=== PATIENT | female | born 2000 | race Caucasian/White ===

== ENCOUNTER 2023-10-25 07:45 | Inpatient (IN) | payer OTHER ==
[2023-10-25] MEDS: ELECTROLYTE-148 SOLN 1,000 ML IV SCH (08:25)
[2023-10-25 09:00] VITALS: BMI 28.1
[2023-10-25 10:38] LABS: BASO % 0.2 % (0-2.0); EOS % 0.1 % (0-4.5); HEMATOCRIT 27.7 % (32.4-45.2); LYMPH % 12.2 % (8-40); MCH 24.6 pg (25.7-33.7); MCHC 32.6 g/dl (32.0-36.0); MEAN CELL VOLUME 75.3 fl (80-96); MEAN PLT VOLUME 7.1 fl (7.5-11.1); MONO % 4.8 % (3.8-10.2); NEUT % 82.7 % (42.8-82.8); PLATELET COUNT 267 10^3/uL (134-434); RBC 3.68 M/mm3 (3.60-5.2); RDW 16.9 % (11.6-15.6); WHITE BLOOD COUNT 10.6 K/mm3 (4.0-10.0)
[2023-10-25] MEDS ORDERED: OXYTOCIN 30 UNITS in 0.9% NS 30 UNIT/500 ML INFUS.BAG IVPB ONE (10:38)
[2023-10-25] MEDS: OXYTOCIN 30 UNITS in 0.9% NS 30 UNIT/500 ML INFUS.BAG IVPB SCH (10:45)
[2023-10-25 10:57] LABS: POTASSIUM 3.8 mmol/L (3.5-5.1)
[2023-10-25 10:58] LABS: CALCIUM 8.8 mg/dL (8.5-10.1)
[2023-10-25 11:02] LABS: CREATININE 0.6 mg/dL (0.55-1.3)
[2023-10-25 11:20] LABS: ACTIVATED PTT 26.8 SECONDS (25.2-36.5); INR 0.91 (0.83-1.09); PROTHROMBIN TIME (PATIENT) 10.5 SEC (9.7-13.0)
[2023-10-25 11:55] LABS: HIV INTERPRETATION NEGATIVE (NEGATIVE)
[2023-10-25 13:56] LABS: POC NITRAZINE POS
[2023-10-25] MEDS ORDERED: PROMETHAZINE HCL 25 MG/1 ML VIAL ONE (14:55)
[2023-10-25] MEDS ORDERED: BUTORPHANOL TARTRATE 2 MG/ML VIAL ONE (14:55)
[2023-10-25] MEDS: PROMETHAZINE HCL 25 MG/1 ML VIAL IVPB ONE (15:00)
[2023-10-25] MEDS: BUTORPHANOL TARTRATE 2 MG/ML VIAL IVPB ONE (15:00)
[2023-10-25] MEDS ORDERED: FENTANYL/BUPIVACAINE/NS/PF - PCEA - 50 ML DISP.SYRIN EP ONE (17:00)
[2023-10-25] MEDS: FENTANYL/BUPIVACAINE/NS/PF - PCEA - 50 ML DISP.SYRIN EP SCH (17:35)
[2023-10-25] MEDS ORDERED: NALOXONE HCL 0.4 MG/ML VIAL IVPUSH PRN (17:42)
[2023-10-25 18:20] VITALS: RESP 18
[2023-10-25] MEDS ORDERED: OXYTOCIN 20 UNITS in 0.9% NS 20 UNIT/1,000 ML INFUS.BAG IV ONE (19:44)
[2023-10-25] MEDS ORDERED: LIDOCAINE HCL 1% PRESERVATIVE FREE - 30ML VIAL ONE (19:44)
[2023-10-25] MEDS ORDERED: BENZOCAINE 28 GM HEMORRHOIDAL OINTMENT TP PRN (21:21)
[2023-10-25] MEDS ORDERED: oxyCODONE HCL 5 MG TABLET PO PRN (21:21)
[2023-10-25] MEDS ORDERED: METHYLERGONOVINE MALEATE 0.2 MG/1 ML AMP IM PRN (21:21)
[2023-10-25] MEDS ORDERED: ACETAMINOPHEN 325 MG TABLET (FP) PO PRN (21:21)
[2023-10-25] MEDS ORDERED: BENZOCAINE 20% 57 GM BOTTLE TP PRN (21:21)
[2023-10-25] MEDS ORDERED: BISACODYL 10 MG SUPP.RECT RC PRN (21:21)
[2023-10-25] MEDS ORDERED: WITCH HAZEL 50% (TUCKS) 40 PAD/JAR PAD TP PRN (21:21)
[2023-10-26] MEDS: DIPHTH,PERTUSS(ACELL),TET 0.5 ML DISP.SYRIN IM ONE ×2 (00:38→14:00)
[2023-10-26] MEDS: FERROUS SO4 325 MG TABLET (FP) PO SCH (08:24)
[2023-10-26 08:56] LABS: BASO % 0.1 % (0-2.0); EOS % 0.1 % (0-4.5); HEMATOCRIT 26.8 % (32.4-45.2); HEMOGLOBIN 8.6 GM/dL (10.7-15.3); LYMPH % 8.8 % (8-40); MCHC 32.1 g/dl (32.0-36.0); MEAN CELL VOLUME 74.8 fl (80-96); MEAN PLT VOLUME 7.2 fl (7.5-11.1); MONO % 4.5 % (3.8-10.2); NEUT % 86.5 % (42.8-82.8); PLATELET COUNT 266 10^3/uL (134-434); RBC 3.58 M/mm3 (3.60-5.2); RDW 17.2 % (11.6-15.6)
[2023-10-26] MEDS: PRENATAL VITAMINS W/ FOLIC ACID TABLET (FP) PO SCH (10:08)
[2023-10-26] MEDS: IBUPROFEN 600 MG TABLET (FP) PO PRN (10:30)
[2023-10-26] MEDS: OXYTOCIN 20 UNITS in 0.9% NS 20 UNIT/1,000 ML INFUS.BAG IV SCH (16:48)
[2023-10-26] MEDS ORDERED: SENNOSIDES/DOCUSATE COMBO (SENNA PLUS) TABLET (UD) PO PRN (22:00)
[2023-10-27 08:00] VITALS: BP 123/82; PULSE 105; TEMP 98.5
== END 2023-10-27 13:20 | disposition home or self-care (01) | DRG 560 ==
LOC: JDEL 07:45 → JLDR 08:05 → J3W 23:00
PROVIDERS: ADMIT Obstetrics & Gynecology; ATTEND Obstetrics & Gynecology
PROC: 10E0XZZ Delivery of Products of Conception, External Approach (ICD-10-PCS; principal; 2023-10-25)
PROC: 0W8NXZZ Division of Female Perineum, External Approach (ICD-10-PCS; 2023-10-25)
DX: O80 Encounter for full-term uncomplicated delivery (principal); Z3A.39 39 weeks gestation of pregnancy; Z37.0 Single live birth
CPT/HCPCS: 36415; 59409; 80048; 83986-QW; 85025; 85610; 85730; 86780; 86803; 86850; 86900; 86901; 87389; 90715